=== PATIENT | male | born 1980 | race Caucasian/White ===

== ENCOUNTER 2016-08-13 08:57 | Emergency (ER) | payer BC ==
[~2016-08-13] VITALS: Ht 190.5 cm; Wt 68.0 kg
[2016-08-13] MEDS ORDERED: PANT40TA4 PO (09:21)
[2016-08-13] MEDS ORDERED: LEVO50TA8 PO (09:21)
[2016-08-13] MEDS ORDERED: QUET50TA PO (09:21)
[2016-08-13] MEDS ORDERED: BIOT10004 PO (09:21)
[2016-08-13] MEDS ORDERED: FURO20TA4 PO (09:21)
[2016-08-13] MEDS ORDERED: AMLO5TAB2 PO (09:21)
[2016-08-13] MEDS ORDERED: DOCU100T PO (09:21)
[2016-08-13] MEDS ORDERED: MONT10TA22 PO (09:21)
[2016-08-13] MEDS ORDERED: VENL37.515 PO (09:21)
[2016-08-13] MEDS ORDERED: RANI300T4 PO (09:21)
[2016-08-13] MEDS ORDERED: ZOLP5TAB8 PO (09:21)
[2016-08-13] MEDS ORDERED: VALS160T2 PO (09:21)
--- NOTE | 2016-08-13 09:22 | NUR ---
DR WOOD AT THE BEDSIDE FOR EVAL AND EXAM.
[2016-08-13 09:38] LABS: *BILIRUBIN,URIN NEGATIVE (NEGATIVE); *BLOOD, URINE Trace-intact (NEGATIVE); *CLARITY,URINE CLEAR (CLEAR); *COLOR,URINE YELLOW (YELLOW); *KETONES,URINE NEGATIVE (NEGATIVE); *PROTEIN,URINE NEGATIVE (NEGATIVE); *UROBILINOGEN,URINE 0.2 E.U./dl (NORMAL); LEUKOCYTE ESTERASE ,URINE NEGATIVE (NEGATIVE); NITRITE, URINE NEGATIVE (NEGATIVE); PH,URINE 8.5 (5.0-8.0); UGLUCOSE NEGATIVE (NEGATIVE)
[2016-08-13 11:33] VITALS: BP 118/70
[2016-08-13 11:34] LABS: BACTERIA,URINE NONE SEEN /HPF (NONE SEEN); RBC,URINE 0-3 /HPF (0-3); SQUAMOUS EPITHELIAL CELL,UR FEW /HPF (NONE SEEN); WBC,URINE 0-3 /HPF (0-3)
== END 2016-08-13 11:34 | disposition home or self-care (01) ==
LOC: ER 08:57
DX: N50.812 Left testicular pain (principal)
CPT/HCPCS: 76870; 87086; 87491; A4663